=== PATIENT | male | born 1995 | race Caucasian/White ===

== ENCOUNTER 2024-05-18 18:16 | Emergency (ER) | payer BC, SELFPAY ==
[2024-05-18 18:17] VITALS: BP 121/83
[2024-05-18 18:40] LABS: % Basophils 0.2 % (0-2); % Immature Granulocytes 0.5 % (0-0.5); % Monocytes 6.7 % (1.7-9.3); % Neutrophils 86.6 % (42.2-75.2); Absolute Immature Granulocytes 0.1 10^3/uL (0-0.05); Absolute Lymphocytes 0.6 10^3/uL (1.2-3.4); Absolute Monocytes 0.6 10^3/uL (0.1-0.6); Hematocrit 41.9 % (39.0-52.0); Hemoglobin 14.4 g/dL (13.0-18.0); Mean Corp Hgb Conc. 34.4 g/dL (33.0-37.0); Mean Corpuscular Hgb 27.2 pg (27.0-31.0); Mean Corpuscular Volume 79.1 fL (80.0-94.0); Mean Platelet Volume 9.7 fL (7.4-10.4); Nucleated Red Blood Cells % 0 % (-); Platelet Count 221 10^3/uL (130-400); Red Cell Dist. Width 12.5 % (11.5-14.5); White Blood Cell Count 9.2 10^3/uL (4.8-10.8)
[2024-05-18 19:25] LABS: ALT (SGPT) 19 U/L (0-50); AST (SGOT) 27 U/L (17-59); Albumin 4.8 g/dl (3.5-5.0); Alkaline Phosphatase 54 U/L (38-126); Blood Urea Nitrogen 22 mg/dl (9-20); Calcium 9.5 mg/dl (8.4-10.2); Carbon Dioxide 25 mmol/L (22-30); Chloride 96 mmol/L (98-107); Glucose 108 mg/dl (70-99); Potassium 4.3 mmol/L (3.5-5.1); Sodium 136 mmol/L (135-145); Total Protein 7.3 g/dl (6.3-8.2); eGFR > 60.00
[2024-05-18 21:03] VITALS: BMI 22.9
[2024-05-18 21:05] VITALS: BP 124/80
--- NOTE | 2024-05-18 21:59 | ED.GENMED ---
History of Present Illness
General
Chief Complaint: Abdominal Symptoms
Source: patient
Exam Limitations: none
Time Seen by Provider: 05/18/24 20:56
History of Present Illness
History of Present Illness:
This is a 29 year old male that comes in with c/o vomiting and diarrhea. State that this started about 24 hour ago and he has not been able to eat anything. State that he had a fever at home of 102. State that he has abd discomfort with the nausea,
vomiting and diarrhea, fever, with chills, headache and dizziness. States that he also has some urinary burning. Denies any chest pain, SOB.
Past History
Past History
ED Past Surgical History: Tonsilectomy (and adenoids) and Other (Rhinoplasty and Septoplasty)
Social History
Tobacco: Non-smoker
Alcohol: Occasional
Personal: Single
Living: with family
Review of Systems
Review of Systems
All Other Systems: ROS reviewed and negative except as documented in HPI and ROS
Constitutional: Reports fever and chills
EENT: Reports no symptoms
Respiratory: Reports no symptoms; Denies cough or trouble breathing
Cardiac: Reports no symptoms; Denies chest pain
ABD/GI: Reports abdominal pain, nausea, vomiting and diarrhea
: Reports dysuria; Denies frequency or urgency
Musculoskeletal: Reports no symptoms
Skin: Reports no symptoms
Neurological: Reports dizzy and headache
Psychiatric: Reports no symptoms
Phy Exam
General Physical Exam
General Presentation: well appearing and no apparent distress
General age: appears stated age
General Skin: warm and dry
General Habitus: normal
General Mental: alert
General Hydration: dry mucous membranes
ENT Exam
ENT Exam: TM's normal, pharynx normal and neck supple
Eye Exam
Eye Exam: EOMI
Cardiovascular Exam
Cardiovascular Exam: regular rate/rhythm, no edema, no murmur and normal peripheral pulses
Pulmonary Exam
Pulmonary Exam: lungs clear, no respiratory distress, no rales, chest non tender, no crackles, no rhonchi, no wheezing and no cough
Gastrointestinal Exam
Gastrointestinal Exam: non tender, soft, no organomegaly, no pulsatile mass, non distended and other (Hyperactive bowel sounds)
Musculoskeletal Exam
Musculoskeletal Exam: full ROM and no edema
Skin Exam
Skin Exam: normal color, warm/dry, no rash and no petechia
Psychiatric Exam
Psychiatric Exam: normal mood/affect
Course
Orders/Labs/Results
Orders:
Orders
05/18/24 18:27
Complete Blood Count/With Diff Urgent
Comprehensive Metabolic Panel Urgent
05/18/24 21:58
0.9% Sodium Chloride 1000 ml [Nss] 1,000 ml IV BOLUS
Acetaminophen [Tylenol] 1,000 mg PO NOW STA
Ondansetron Injectable [Zofran] 4 mg IV NOW STA
05/18/24 22:47
COVID-19 Antigen Urgent
Source: Nasal Swab
05/18/24 23:41
Urinalysis Reflex To Culture Urgent
Date Specimen was Collected: 05/18/24
Time Specimen was Collected: 23:39
Abnormal Lab Results
05/18/24 05/18/24
18:27 23:41
MCV 79.1 L fL
(80.0-94.0)
Abs Immat Gran (auto) 0.1 H 10^3/uL
(0-0.05)
Absolute Neuts (auto) 8.0 H 10^3/uL
(1.4-6.5)
Absolute Lymphs (auto) 0.6 L 10^3/uL
(1.2-3.4)
Neutrophils % 86.6 H %
(42.2-75.2)
Lymphocytes % 6.0 L %
(20.5-51.1)
Chloride 96 L mmol/L
(98-107)
BUN 22 H mg/dl
(9-20)
Creatinine 1.4 H mg/dL
(0.7-1.3)
Glucose 108 H mg/dl
(70-99)
Urine Ketones 3+ A
(Negative)
05/18/24 18:27
05/18/24 18:27
Dehydration, Hyperglycemia. Chloride slightly low. Urine negative for infection
Vital Signs
Initial and Last Documented VS:
Initial Vital Signs
Temp Pulse Resp BP Pulse Ox
100.3 F 92 16 121/83 98
05/18/24 18:17 05/18/24 18:17 05/18/24 18:17 05/18/24 18:17 05/18/24 18:17
Last Documented Vital Signs
Temp Pulse Resp BP Pulse Ox
100.3 F 93 16 124/80 99
05/18/24 18:17 05/18/24 21:05 05/18/24 21:05 05/18/24 21:05 05/18/24 21:05
MDM/Problems Addressed
Differential Diagnosis Includes:
Viral GI syndrome
MDM/Problems Addressed:
This is a 29 year old male that comes in with c/o vomiting and diarrhea for the past 24 hours. States that he hasn't eaten today and that he has had a fever with chills, urinary burning, headache and dizziness.
Will check lab and give IV fluids. Tylenol and Zofran,
Back into see patient. Patient states that he is feeling better. Will give patient a prescription for Zofran to help with any nausea/vomiting. Patient to increase his water intake to 8-8oz glasses daily. Follow up with the family doctor. return with
any concerns
Chronic conditions affecting care:
NA
Acute Exacerbation and/or Progression of Chronic Illness:
NA
*Pulse Oximetry
Patient hypoxic: no
*EKG
Interpreted by ED Provider?: NA
Rate: EKG- N/A
*Powder Operator Interpretation
Rate: Powder Operator- N/A
*Critical Care Note
Total Time (30-74mins, 75-104mins- exclusive of procedures): Not Applicable
ED Attending Note
-
Portions of this chart may have been created with voice recognition software.� Occasional wrong word or��sound alike� substitutions may have occurred due to the inherent limitations of voice recognition software.
Discharge Plan
Departure
Patient Disposition: Home (Routine Discharge)
Date of Disposition: 05/19/24
Time of Disposition: 00:07
Patient with high blood pressure during this ER visit?: No
Condition: Good
Covid-19: Negative COVID-19
Discharge Problem:
Nausea vomiting and diarrhea
Instructions: Diarrhea in teens and adults, Nausea and Vomiting, Adult (DC)
Prescriptions:
New
ondansetron 4 mg tablet,disintegrating
4 mg PO Q8H PRN (Reason: nausea and vomiting) Qty: 7 0RF
Referrals:
Elisa Mcclain CRNP [Family Provider] - Call in 1-3 days for appt
Activity Restrictions/Additional Instructions:
As discussed, this is most likely a viral illness. You are negative for COVID. Please increase your water intake to 8-8oz glasses daily. You have had a prescription for Zofran sent to your pharmacy. This will help with any nausea or vomiting. Please
follow up with the family doctor for recheck. Tylenol as needed for any fever. IF YOU HAVE ANY OTHER CONCERNS PLEASE RETURN TO THE EMERGENCY ROOM.
Interventions
Interventions:
*Risk Screen - Suicide Last Done: 05/18/24 18:17
*General Assessment Last Done: 05/18/24 20:54
*Neglect/Abuse Screening Last Done: 05/18/24 20:54
ED- Fall Risk Assessment Last Done: 05/18/24 20:54
*ED COVID-19 Vaccine History Last Done: 05/18/24 20:54
JT-[id number]-[id number] Assessment Last Done: 05/18/24 20:54
Discharge Date and Time
Print Language: [place]
[2024-05-18] MEDS: NSS 1000 IV (22:38)
[2024-05-18] MEDS: TYLENOL 1000 MG PO (22:41)
[2024-05-18] MEDS: ZOFRAN 4 MG IV (22:41)
[2024-05-18 23:50] LABS: COVID-19 Antigen Negative (Negative)
[2024-05-18 23:58] LABS: Urine Albumin Trace (Neg - Trace); Urine Bilirubin Negative (Negative); Urine Character Clear (Clear); Urine Color Yellow; Urine Glucose Negative (Negative); Urine Ketone 3+ (Negative); Urine Leukocyte Negative (Negative); Urine Nitrite Negative (Negative); Urine Occult Blood Negative (Negative); Urine Urobilinogen Negative (Neg - 1+)
[2024-05-19 00:30] VITALS: BP 102/48
== END 2024-05-19 00:30 | disposition home or self-care (01) ==
LOC: EMR 18:16
PROVIDERS: Clinical Nurse Specialist Family Health; Emergency Medicine; EMERGENCY PHYSICIAN Emergency Medicine; FAMILY PHYSICIAN Nurse Practitioner Family
DX: R11.2 Nausea with vomiting, unspecified (principal); R19.7 Diarrhea, unspecified
CPT/HCPCS: 99283; 96374; 96361; 80053; 81003; 85025; 87811